=== PATIENT | female | born 1960 | race Caucasian/White ===

== ENCOUNTER → 2018-08-18 | Outpatient (CLI) | payer OTHER ==
[~2018-08-18] MED LIST: ADVAIR; ALLOPURINOL; ASPIRIN81 M1; ATORVASTATIN CA10 MG PO; FOLIC ACID PO; PREDNISONE5 MG; RAMIPRIL PO; SPIRIVA18 MCG; SYMBICORT 16010.2 GM INH; THEOPHYLLINE PO
--- NOTE | 2018-08-20 07:48 | Diagnostic Imaging Report ---
Exam: Bone mineral density study. History: OSTEOPOROSIS SCREENING Comparison: None available. Discussion: Evaluation of the left hip and lumbar spine was performed. The study is technically adequate. The patient's fracture risk is compared to an age-matched control. The patient denies prior surgery/fracture of the spine, hips or forearm. Left hip femoral neck bone mineral density: 0.8 g/cm2, T-score is -0.3, Z-score is 0.9. Left hip total bone mineral density: 0.8 g/cm2, T-score is -0.9, Z-score is -0.1. Lumbar spine total bone mineral density: 0.9 g/cm2, T-score is -1.6, Z-score is -0.4. Impression: 1. Bone mineralization by WHO Classification is low bone mass/osteopenia, the fracture risk is increased. 2. The FRAX 10-year probability of major osteoporotic fracture is 9.3% and hip fracture is 0.3%. These probabilities assume the patient is untreated. Signed by: Dr. Abbe Camarillo D.O., M.M.M. on 08/20/2018 7:45 AM
== END ==
LOC: DX 15:24
PROVIDERS: ATTEND Internal Medicine
DX: M81.0 Age-related osteoporosis without current pathological fracture (principal)
CPT/HCPCS: 77080

== ENCOUNTER → 2021-08-05 | Outpatient (CLI) | payer OTHER ==
[2021-08-05 14:20] LABS: ABG HCO3 26 mmol/L (22-26); ABG PCO2 38 mmHg (35-45); ABG PH 7.45 (7.35-7.45); ABG PO2 69 mmHg (80-105); ABG TCO2 27
== END ==
LOC: RESP 13:33
PROVIDERS: ATTEND Internal Medicine Pulmonary Disease
DX: J44.1 Chronic obstructive pulmonary disease with (acute) exacerbation (principal)
CPT/HCPCS: 36415; 36600; 82805; 94060; 94640